=== PATIENT | male | born 1950 | race Caucasian/White ===

== ENCOUNTER → 2016-10-13 | Outpatient (CLI) | payer MEDICARE ==
[~2016-10-13] MED LIST: ALEVE220 MG PO; ATENOLOL25 MG; B12100 MCG PO; BUSPIRONE5 MG PO; BYETTA10 MCG/0.0 SC; CIALIS20 MG PO; CYCLOBENZAPRINE10 MG PO; DELTASONE5 MG PO; ENTERIC ASPIRI325 MG; FLEXERIL10 MG PO; FOLIC ACID1 MG PO; HYDROCODONE BIT1 T11 PO; IBU800 MG PO; LASIX20 MG PO; LEVEMIR100 U/ML SC; LOVAZA1 GM PO; MEDROL DOSEPAK4 MG PO; METFORMIN500 MG PO; MOTRIN800 MG PO; NAPROSYN500 MG PO; NIASPAN1000 MG PO; NORCO 5-325 TA1 EACH PO; PANTOPRAZOLE40 MG PO; POTASSIUM20 MEQ PO; PREDNICOT20 MG PO; PREDNISONE50 MG PO; PRILOSEC10 MG PO; RAMIPRIL5 MG PO; SIMVASTATIN20 MG PO; SYNTHROID0.1 MG PO; VITAMIN D5000 I2 PO
== END | disposition home or self-care (01) ==
LOC: RAD 13:16
DX: I70.0 Atherosclerosis of aorta (principal); M12.88 Other specific arthropathies, not elsewhere classified, other specified site; G89.29 Other chronic pain; M47.896 Other spondylosis, lumbar region

== ENCOUNTER → 2016-10-20 | Outpatient (CLI) | payer MEDICARE ==
[2016-10-21 07:08] LABS: RHEUMATOID ARTHRITIS FACTOR <10.0 IU/mL (0.0-13.9)
== END | disposition home or self-care (01) ==
LOC: LAB 13:08
PROVIDERS: Physician Assistant
DX: M54.5 Low back pain (principal); G89.29 Other chronic pain

== ENCOUNTER → 2017-04-27 | Outpatient (CLI) | payer MEDICARE | END | disposition home or self-care (01) | LOC: RAD 15:28 | DX: S70.01XA Contusion of right hip, initial encounter (principal); M16.11 Unilateral primary osteoarthritis, right hip; X58.XXXA Exposure to other specified factors, initial encounter; Y93.89 Activity, other specified; Y92.89 Other specified places as the place of occurrence of the external cause; Y99.8 Other external cause status ==

== ENCOUNTER 2018-01-03 14:08 | Inpatient (IN) | payer MEDICARE ==
[~2018-01-03] VITALS: Ht 172.7 cm; Wt 115.2 kg
--- NOTE | ~2018-01-03 | CON ---
[place], [place] REPORT OF CONSULTATION NAME: NAOMI CHERYFLORINDA Lawrence UNIT #: [id number] ROOM: [facility] DOCTOR: ANNIKA ABERNATHY MD BIRTHDATE: [birth year] DOS: 01/04/2018 NO DICTATION ANNIKA ABERNATHY MD CM:CONSTR:REPORT OF CONSULTATION 1134 01/04/18 1914 interface
--- NOTE | ~2018-01-03 | EKG ---
[place], [place] ELECTROCARDIOGRAM REPORT NAME: FLORINDA SALGADO SR UNIT #: [id number] ROOM: [facility] DOCTOR: TYLER DRAFT REPORT BIRTHDATE: [birth year] [facility] Test Date: 2018-01-04 Test Time: 00:58:23 Pat Name: FLORINDA SALGADO Department: Room: [facility] 1 Gender: M [employer] Worker: : 1950 Requested By: ESSENCE MORRIS Order Number: [id number] Reading MD: Jeffry Orozco MD Measurements Intervals [place] Rate: 105 P: 50 WV: 173 QRS: 68 QRSD: 96 T: 12 QT: 375 QTc: 496 Interpretive Statements Sinus tachycardia Borderline prolonged QT interval Electronically Signed On 01-05-2018 11:09:24 PDT by Jeffry Orozco MD CM:EKGRPT:ELECTROCARDIOGRAM REPORT [id number] ESSENCE HANNAH DRAFT REPORT ESSENCE MORRIS DO
--- NOTE | ~2018-01-03 | CON ---
[place], [place] REPORT OF CONSULTATION NAME: FLORINDA SALGADO SR [id number] UNIT #: [id number] ROOM: 501 DOCTOR: ANNIKA ABERNATHY MD BIRTHDATE: [birth year] DOS: 01/04/2018 HISTORY OF PRESENT ILLNESS: This is a 67-year-old -[place] man with a history of essential hypertension, diabetes mellitus type 2, morbid obesity, hypothyroidism, obstructive sleep apnea, DJD, chronic kidney disease, BPH and had atrial fibrillation in 2011, GERD and has had eye surgery, herniorrhaphy and right knee surgery. He was admitted to the hospital because of lower abdominal pain that was quite severe and felt like cramps. It would not let up, so he came to the Emergency Department and was admitted and I believe has been diagnosed with acute diverticulitis. Dr. Hearn was asked to see him because of slight increase in troponin I level, which was 0.142 on admission and dropped to 0.117. He has not had any exertional chest pain or heaviness or chest pain at rest. He is not a very active man and since he retired a couple of years ago. There has not been any PND, orthopnea, or swelling of the legs. No palpitations, no loss of consciousness. He does not smoke nor does he drink alcoholic beverages. He retired a couple of years ago. HOME MEDICATIONS: Include buspirone, Invokana, levothyroxine, furosemide 20 mg daily, cyclobenzaprine 10 mg b.i.d., Protonix 40 daily, niacin 1 gram ER daily, ramipril 5 mg daily, simvastatin 20 daily, Cialis 5 mg twice a week as needed, and Trulicity. PHYSICAL EXAMINATION: GENERAL: This is a patient who is moderately obese. He is alert. He is oriented. His complexion is fine. He is moderately obese. There is no thyromegaly or finger clubbing, no cyanosis, not jaundiced. VITAL SIGNS: Pulse is regular at 88 beats per minute, blood pressure 118/68, previous blood pressure was 160/92. NECK: JVP is normal, no bruit in the neck. HEART: There is no cardiomegaly, no murmurs are present. EXTREMITIES: He has 1+ pretibial edema. Pedal pulses are palpable. RESPIRATORY: Breath sounds are mildly diminished because of obesity, but no adventitious sounds are present. DIAGNOSTIC DATA: ECG showed normal sinus rhythm at 105 beats per minute and a normal pattern. No other ECG was done. LABORATORY DATA: BUN is 23, creatinine 1.63 and GFR is 42 mL per minute. IMPRESSION: This patient with multiple risk factors for coronary artery disease, has troponin I level that is just slightly above normal. This patient has acute abdominal infection, has chronic kidney disease, diabetes mellitus and was hypertensive. Combination of this practice can easily raise troponin I level without epicardial coronary artery occlusion. Since he does have many risk factors, underlying coronary disease should eventually be evaluated. [place], [place] REPORT OF CONSULTATION NAME: NAOMI CHERY,FLORINDA Bravo UNIT #: [id number] ROOM: [facility] DOCTOR: ANNIKA ABERNATHY MD BIRTHDATE: [birth year] In the meantime, it is an good idea to put him on beta therefore, carvedilol 6.25 mg b.i.d. will be started. I thank you on behalf of Dr. Hearn for this consult. ANNIKA ABERNATHY MD CM:CONSTR:REPORT OF CONSULTATION 1134 01/04/18 6126 interface
[2018-01-03 14:12] VITALS: BP 160/92
[2018-01-03 14:39] LABS: BASO # 0.1 10*3/uL (0.0-0.1); BASO % 0.4 % (0.0-1.0); EOS # 0.1 10*3/uL (0.0-0.4); HEMATOCRIT 56.9 % (42.0-52.0); HEMOGLOBIN 18.5 g/dl (14.0-18.0); LYMPH # 1.4 10*3/uL (1.3-4.4); LYMPH % 10.5 % (27.0-41.0); MEAN CELL VOLUME 94.5 fl (80.0-94.0); MEAN CORPUSCULAR HGB 30.7 pg (27.0-31.0); MEAN CORPUSCULAR HGB CONC 32.5 g/dl (33.0-37.0); MEAN PLATELET VOLUME 11.7 fl (9.6-12.3); MONO # 0.7 10*3/uL (0.1-1.0); MONO % 5.3 % (3.0-9.0); NEUT # 11.2 10*3/uL (2.3-7.9); NEUT % 82.6 % (47.0-73.0); PLATELET COUNT AUTOMATED 166 10*3/uL (130-400); RED BLOOD COUNT 6.02 10*6/uL (4.50-5.90); RED CELL DISTRI WIDTH 13.6 % (0-14.5); WHITE BLOOD COUNT 13.5 10*3/uL (4.8-10.8)
[2018-01-03 14:56] LABS: ALKALINE PHOSPHATASE 90 U/L (45-117); BUN 15 mg/dl (7-24); CHLORIDE 102 mmol/L (98-107); CREATININE 1.29 mg/dL (0.70-1.30); LIPASE 308 U/L (73-393); POTASSIUM 4.2 mmol/L (3.5-5.1); SGOT/AST 21 IU/L (3-35); SGPT/ALT 44 U/L (12-78); SODIUM 138 mmol/L (136-145); TOTAL PROTEIN 8.5 gm/dL (6.4-8.2)
[2018-01-03 16:30] VITALS: BP 144/80
[2018-01-03 18:17] VITALS: BP 147/79
[2018-01-03 20:13] VITALS: BP 137/87
[2018-01-03 22:13] VITALS: BP 110/63
[2018-01-03 23:20] VITALS: BP 156/82
[2018-01-03] MEDS ORDERED: TRULICITY0.75 MG/0. SC (23:54)
[2018-01-03] MEDS ORDERED: INVOKANA100 M1 PO (23:55)
[2018-01-04] VITALS (7 sets, daily range): BP systolic 112–156; BP diastolic 60–82
[2018-01-04 03:14] LABS: TROPONIN I 0.133 ng/ml (<0.045)
[2018-01-04 06:38] LABS: BASO % 0.3 % (0.0-1.0); EOS % 0.2 % (1.0-4.0); HEMATOCRIT 54.1 % (42.0-52.0); HEMOGLOBIN 17.2 g/dl (14.0-18.0); LYMPH # 0.6 10*3/uL (1.3-4.4); LYMPH % 4.5 % (27.0-41.0); MEAN CELL VOLUME 95.2 fl (80.0-94.0); MEAN CORPUSCULAR HGB 30.3 pg (27.0-31.0); MEAN CORPUSCULAR HGB CONC 31.8 g/dl (33.0-37.0); MEAN PLATELET VOLUME 11.9 fl (9.6-12.3); MONO # 0.8 10*3/uL (0.1-1.0); MONO % 6.3 % (3.0-9.0); NEUT # 11.9 10*3/uL (2.3-7.9); NEUT % 88.5 % (47.0-73.0); PLATELET COUNT AUTOMATED 157 10*3/uL (130-400); RED BLOOD COUNT 5.68 10*6/uL (4.50-5.90); RED CELL DISTRI WIDTH 14.1 % (0-14.5); WHITE BLOOD COUNT 13.4 10*3/uL (4.8-10.8)
[2018-01-04 07:06] LABS: ALBUMIN 3.9 gm/dl (3.1-4.5); CREATININE 1.63 mg/dL (0.70-1.30); FREE T4 1.01 ng/dl (0.76-1.46); PHOSPHOROUS 3.4 mg/dL (2.5-4.9); POTASSIUM 4.2 mmol/L (3.5-5.1); TOTAL PROTEIN 7.3 gm/dL (6.4-8.2)
[2018-01-04 07:10] LABS: THYROID STIM HORMONE (HS) 0.895 uIU/ml (0.358-4.75)
[2018-01-04 07:13] LABS: ACT PARTIAL THROMBO TIME 27.6 SECONDS (20.8-31.5)
[2018-01-04 07:52] LABS: VITAMIN D, 25-HYDROXY 35.5 ng/mL (30-100)
[2018-01-04] MEDS ORDERED: OMEPRAZOLE40 MG PO (15:27)
[2018-01-04] MEDS ORDERED: STRIANT30 MG T (15:30)
[2018-01-04] MEDS ORDERED: LIPITOR20 MG PO (15:31)
[2018-01-04] MEDS ORDERED: INVOKAMET 50-11 EACH PO (15:37)
[2018-01-05] VITALS: BP 122/78
[2018-01-05 08:00] VITALS: BP 109/70
[2018-01-05 08:32] LABS: BASO % 0.4 % (0.0-1.0); EOS # 0.2 10*3/uL (0.0-0.4); EOS % 3.2 % (1.0-4.0); HEMATOCRIT 50.2 % (42.0-52.0); HEMOGLOBIN 15.6 g/dl (14.0-18.0); LYMPH # 1.2 10*3/uL (1.3-4.4); LYMPH % 16.8 % (27.0-41.0); MEAN CELL VOLUME 97.9 fl (80.0-94.0); MEAN CORPUSCULAR HGB 30.4 pg (27.0-31.0); MEAN CORPUSCULAR HGB CONC 31.1 g/dl (33.0-37.0); MONO # 0.6 10*3/uL (0.1-1.0); MONO % 8.4 % (3.0-9.0); NEUT # 5.1 10*3/uL (2.3-7.9); NEUT % 70.9 % (47.0-73.0); PLATELET COUNT AUTOMATED 128 10*3/uL (130-400); RED BLOOD COUNT 5.13 10*6/uL (4.50-5.90); RED CELL DISTRI WIDTH 14.1 % (0-14.5); WHITE BLOOD COUNT 7.2 10*3/uL (4.8-10.8)
[2018-01-05 08:46] LABS: BUN 19 mg/dl (7-24); CHLORIDE 100 mmol/L (98-107); CREATININE 1.32 mg/dL (0.70-1.30); POTASSIUM 4.1 mmol/L (3.5-5.1); SODIUM 138 mmol/L (136-145)
[2018-01-05 12:00] VITALS: BP 103/63
[2018-01-05 16:00] VITALS: BP 115/59
[2018-01-05 20:00] VITALS: BP 120/70
[2018-01-06] VITALS: BP 135/79
[2018-01-06 06:30] LABS: BASO % 0.7 % (0.0-1.0); EOS # 0.2 10*3/uL (0.0-0.4); EOS % 4.1 % (1.0-4.0); HEMOGLOBIN 15.2 g/dl (14.0-18.0); LYMPH # 1.3 10*3/uL (1.3-4.4); LYMPH % 22.8 % (27.0-41.0); MEAN CELL VOLUME 98.6 fl (80.0-94.0); MEAN CORPUSCULAR HGB 30.6 pg (27.0-31.0); MEAN PLATELET VOLUME 12.1 fl (9.6-12.3); MONO # 0.6 10*3/uL (0.1-1.0); MONO % 10.7 % (3.0-9.0); NEUT # 3.6 10*3/uL (2.3-7.9); NEUT % 61.5 % (47.0-73.0); PLATELET COUNT AUTOMATED 131 10*3/uL (130-400); RED BLOOD COUNT 4.97 10*6/uL (4.50-5.90); WHITE BLOOD COUNT 5.8 10*3/uL (4.8-10.8)
[2018-01-06 06:55] LABS: BUN 17 mg/dl (7-24); CHLORIDE 103 mmol/L (98-107); SODIUM 141 mmol/L (136-145)
[2018-01-06 08:00] VITALS: BP 135/80
[2018-01-06] MEDS ORDERED: FLAGYL500 MG PO (11:15)
[2018-01-06] MEDS ORDERED: CIPRO500 MG PO (11:15)
== END 2018-01-06 13:20 | disposition home or self-care (01) | DRG 872 ==
LOC: ED 14:08 → EDHOLD 22:35 → 5E 22:35
PROVIDERS: Internal Medicine; Nurse Practitioner Family
PROC: 5A09357 Assistance with Respiratory Ventilation, Less than 24 Consecutive Hours, Continuous Positive Airway Pressure (ICD-10-PCS; principal; 2018-01-04)
PROC: 5A09357 Assistance with Respiratory Ventilation, Less than 24 Consecutive Hours, Continuous Positive Airway Pressure (ICD-10-PCS; 2018-01-06)
DX: A41.9 Sepsis, unspecified organism (principal); N17.9 Acute kidney failure, unspecified; E87.2 Acidosis; K56.609 Unspecified intestinal obstruction, unspecified as to partial versus complete obstruction; E11.22 Type 2 diabetes mellitus with diabetic chronic kidney disease; I48.0 Paroxysmal atrial fibrillation; D75.1 Secondary polycythemia; E11.65 Type 2 diabetes mellitus with hyperglycemia; N18.3 Chronic kidney disease, stage 3 (moderate); K56.7 Ileus, unspecified; Z68.42 Body mass index [BMI] 45.0-49.9, adult; K76.0 Fatty (change of) liver, not elsewhere classified; K52.9 Noninfective gastroenteritis and colitis, unspecified; K57.30 Diverticulosis of large intestine without perforation or abscess without bleeding; R65.20 Severe sepsis without septic shock; R74.8 Abnormal levels of other serum enzymes; K44.9 Diaphragmatic hernia without obstruction or gangrene; M54.16 Radiculopathy, lumbar region; M16.0 Bilateral primary osteoarthritis of hip; D75.89 Other specified diseases of blood and blood-forming organs; I12.9 Hypertensive chronic kidney disease with stage 1 through stage 4 chronic kidney disease, or unspecified chronic kidney disease; E78.5 Hyperlipidemia, unspecified; E03.9 Hypothyroidism, unspecified; K21.9 Gastro-esophageal reflux disease without esophagitis; G47.33 Obstructive sleep apnea (adult) (pediatric); N40.0 Benign prostatic hyperplasia without lower urinary tract symptoms; F41.1 Generalized anxiety disorder; E66.9 Obesity, unspecified; Z87.891 Personal history of nicotine dependence; Z82.49 Family history of ischemic heart disease and other diseases of the circulatory system; Z83.3 Family history of diabetes mellitus; Z79.899 Other long term (current) drug therapy

== ENCOUNTER → 2018-01-23 | Outpatient (CLI) | payer MEDICARE ==
[~2018-01-23] MED LIST changes: +CIPRO500 MG PO; +FLAGYL500 MG PO; +INVOKAMET 50-11 EACH PO; +INVOKANA100 M1 PO; +LIPITOR20 MG PO; +OMEPRAZOLE40 MG PO; +STRIANT30 MG T; +TRULICITY0.75 MG/0. SC
--- NOTE | ~2018-01-23 | ST ---
[place], [place] EXERCISE STRESS TEST REPORT [id number] UNIT #: [id number] ROOM: DOCTOR: TERELL PHILLIPS MD BIRTHDATE: [birth year] DOS: 01/23/2018 LEXISCAN PORTION OF THE LEXISCAN CARDIOLITE PROCEDURE AND FINDINGS: Baseline echocardiogram with sinus rhythm with poor R-wave progression. 0.4 mg Lexiscan, duration of 10 seconds. With Lexiscan, the patient had no chest discomfort, no dysrhythmia. Blood pressure and heart rate response are normal. Nuclear images will be reported separately. TERELL PHILLIPS MD CM:STRESS:EXERCISE STRESS TEST REPORT [id number] TERELL PHILLIPS MD
== END | disposition home or self-care (01) ==
LOC: CARD 03:29
DX: I21.9 Acute myocardial infarction, unspecified (principal); R53.81 Other malaise; R94.31 Abnormal electrocardiogram [ECG] [EKG]; R74.8 Abnormal levels of other serum enzymes; E03.9 Hypothyroidism, unspecified

== ENCOUNTER → 2018-08-24 | Outpatient (CLI) | payer MEDICARE ==
[2018-08-24 09:29] LABS: BASO % 0.3 % (0.0-1.0); EOS # 0.2 10*3/uL (0.0-0.4); HEMOGLOBIN 16.8 g/dl (14.0-18.0); LYMPH # 1.4 10*3/uL (1.3-4.4); LYMPH % 21.1 % (27.0-41.0); MEAN CELL VOLUME 97.6 fl (80.0-94.0); MEAN CORPUSCULAR HGB 31.5 pg (27.0-31.0); MEAN CORPUSCULAR HGB CONC 32.3 g/dl (33.0-37.0); MONO # 0.7 10*3/uL (0.1-1.0); MONO % 10.2 % (3.0-9.0); NEUT # 4.2 10*3/uL (2.3-7.9); NEUT % 65.2 % (47.0-73.0); PLATELET COUNT AUTOMATED 128 10*3/uL (130-400); RED BLOOD COUNT 5.33 10*6/uL (4.50-5.90); RED CELL DISTRI WIDTH 14.3 % (0-14.5); WHITE BLOOD COUNT 6.4 10*3/uL (4.8-10.8)
[2018-08-24 09:38] LABS: ALBUMIN 3.8 gm/dl (3.1-4.5); ALKALINE PHOSPHATASE 89 U/L (45-117); BUN 13 mg/dl (7-24); CHLORIDE 101 mmol/L (98-107); CHOLESTEROL 128 mg/dL (<200); CREATININE 1.15 mg/dL (0.70-1.30); HDL CHOLESTEROL 35 mg/dl (40-60); LDL CHOLESTEROL 55 mg/dL (9-159); POTASSIUM 4.2 mmol/L (3.5-5.1); SGOT/AST 22 IU/L (3-35); SODIUM 136 mmol/L (136-145); TOTAL PROTEIN 7.5 gm/dL (6.4-8.2); TRIGLYCERIDES 190 mg/dl (<150); VLDL CHOLESTEROL 38 mg/dL (6-40)
[2018-08-24 09:45] LABS: SGPT/ALT 38 U/L (12-78)
[2018-08-25 10:05] LABS: CREATININE,URINE 68.5 mg/dL (Not Estab.); MICRO ALBUMIN/CRE RATIO 6.1 (0.0-30.0)
== END | disposition home or self-care (01) ==
LOC: LAB 08:43
PROVIDERS: Registered Nurse Flight
DX: E11.65 Type 2 diabetes mellitus with hyperglycemia (principal); I10 Essential (primary) hypertension; E78.5 Hyperlipidemia, unspecified; E55.9 Vitamin D deficiency, unspecified; D69.3 Immune thrombocytopenic purpura

== ENCOUNTER → 2019-02-25 | Outpatient (CLI) | payer MEDICARE ==
[2019-02-25 10:30] LABS: BILIRUBIN NEGATIVE (NEGATIVE); BLOOD TRACE-INTACT (NEGATIVE); CLARITY CLEAR (CLEAR); COLOR YELLOW (YELLOW); GLUCOSE NEGATIVE (NEGATIVE); KETONE NEGATIVE (NEGATIVE); LEUKO ESTERASE NEGATIVE (NEGATIVE); NITRITE NEGATIVE (NEGATIVE); UROBILINOGEN 0.2 E.U./dl (0.2-1.0)
[2019-02-25 10:37] LABS: HEMOGLOBIN 17.4 g/dl (14.0-18.0); MEAN CELL VOLUME 98.7 fl (80.0-94.0); MEAN CORPUSCULAR HGB CONC 33.5 g/dl (33.0-37.0); MEAN PLATELET VOLUME 11.4 fl (9.6-12.3); PLATELET COUNT AUTOMATED 128 10*3/uL (130-400); RED BLOOD COUNT 5.27 10*6/uL (4.50-5.90); RED CELL DISTRI WIDTH 13.5 % (0-14.5); WHITE BLOOD COUNT 2.4 10*3/uL (4.8-10.8)
[2019-02-25 10:45] LABS: BACTERIA TRACE; RBC 16-20 rbc/hpf (0-2)
[2019-02-25 10:58] LABS: BUN 16 mg/dl (7-24); CHLORIDE 105 mmol/L (98-107); CREATININE 1.25 mg/dL (0.70-1.30); POTASSIUM 4.4 mmol/L (3.5-5.1); SODIUM 141 mmol/L (136-145)
[2019-02-25 11:28] LABS: ATYPICAL LYMPHS 3 % (0-0); BASOPHILS 2 % (0-1); PLATELET SUFFICIENCY LOW (NORMAL); TOTAL CELLS COUNTED 100 #CELLS
[2019-02-25 11:48] LABS: VITAMIN D, 25-HYDROXY 45.2 ng/mL (30-100)
== END | disposition home or self-care (01) ==
LOC: LAB 10:04
PROVIDERS: Internal Medicine; Registered Nurse Flight
DX: E11.65 Type 2 diabetes mellitus with hyperglycemia (principal); D69.3 Immune thrombocytopenic purpura; E55.9 Vitamin D deficiency, unspecified; E34.9 Endocrine disorder, unspecified; N40.0 Benign prostatic hyperplasia without lower urinary tract symptoms

== ENCOUNTER → 2019-03-15 | Outpatient (CLI) | payer MEDICARE | END | disposition home or self-care (01) | LOC: US 13:22 | DX: I65.23 Occlusion and stenosis of bilateral carotid arteries (principal) ==

== ENCOUNTER 2019-06-11 21:47 | Emergency (ER) | payer MEDICARE ==
[~2019-06-11] VITALS: Ht 172.7 cm; Wt 122.5 kg
== END 2019-06-12 00:59 | disposition home or self-care (01) ==
LOC: ED 21:47
DX: S62.102A Fracture of unspecified carpal bone, left wrist, initial encounter for closed fracture (principal); S00.81XA Abrasion of other part of head, initial encounter; M25.561 Pain in right knee; M25.562 Pain in left knee; M79.641 Pain in right hand; M79.642 Pain in left hand; M25.531 Pain in right wrist; M25.532 Pain in left wrist; E11.22 Type 2 diabetes mellitus with diabetic chronic kidney disease; I12.9 Hypertensive chronic kidney disease with stage 1 through stage 4 chronic kidney disease, or unspecified chronic kidney disease; N18.3 Chronic kidney disease, stage 3 (moderate); I48.91 Unspecified atrial fibrillation; K21.9 Gastro-esophageal reflux disease without esophagitis; E78.5 Hyperlipidemia, unspecified; E03.9 Hypothyroidism, unspecified; E66.9 Obesity, unspecified; Z68.30 Body mass index [BMI] 30.0-30.9, adult; Z87.891 Personal history of nicotine dependence; Z79.899 Other long term (current) drug therapy; Z79.2 Long term (current) use of antibiotics; W10.1XXA Fall (on)(from) sidewalk curb, initial encounter; Y93.89 Activity, other specified; Y92.89 Other specified places as the place of occurrence of the external cause; Y99.8 Other external cause status

== ENCOUNTER → 2019-07-29 | Outpatient (CLI) | payer MEDICARE ==
[2019-07-29 12:47] LABS: ALBUMIN 4.1 gm/dl (3.1-4.5); BUN 17 mg/dl (7-24); CHLORIDE 107 mmol/L (98-107); CREATININE 1.29 mg/dL (0.70-1.30); POTASSIUM 4.5 mmol/L (3.5-5.1); SODIUM 141 mmol/L (136-145)
[2019-07-29 14:03] LABS: COLOR YELLOW (YELLOW)
[2019-07-29 14:06] LABS: BILIRUBIN NEGATIVE (NEGATIVE); BLOOD 2+ (NEGATIVE); CLARITY CLEAR (CLEAR); GLUCOSE NEGATIVE (NEGATIVE); KETONE NEGATIVE (NEGATIVE); LEUKO ESTERASE TRACE (NEGATIVE); NITRITE NEGATIVE (NEGATIVE); UROBILINOGEN 0.2 E.U./dl (0.2-1.0)
[2019-07-29 14:07] LABS: BACTERIA TRACE; EPITHELIAL CELLS 0-2
[2019-07-29 15:10] LABS: VITAMIN D, 25-HYDROXY 57.7 ng/mL (30-100)
== END | disposition home or self-care (01) ==
LOC: LAB 12:09
PROVIDERS: Internal Medicine
DX: E11.65 Type 2 diabetes mellitus with hyperglycemia (principal); E55.9 Vitamin D deficiency, unspecified; E34.9 Endocrine disorder, unspecified; N40.0 Benign prostatic hyperplasia without lower urinary tract symptoms

== ENCOUNTER → 2019-11-12 | Outpatient (CLI) | payer MEDICARE ==
[2019-11-12 14:45] LABS: BILIRUBIN NEGATIVE (NEGATIVE); BLOOD 1+ (NEGATIVE); CLARITY SL CLOUDY (CLEAR); COLOR YELLOW (YELLOW); GLUCOSE NEGATIVE (NEGATIVE); KETONE NEGATIVE (NEGATIVE); LEUKO ESTERASE NEGATIVE (NEGATIVE); NITRITE NEGATIVE (NEGATIVE); SPECIFIC GRAVITY 1.005 (1.005-1.030); UROBILINOGEN 0.2 E.U./dl (0.2-1.0)
[2019-11-12 14:58] LABS: ALBUMIN 4.3 gm/dl (3.1-4.5); ALKALINE PHOSPHATASE 47 U/L (45-117); BILIRUBIN, DIRECT 0.2 mg/dL (0.0-0.2); BUN 18 mg/dl (7-24); CHLORIDE 107 mmol/L (98-107); CHOLESTEROL 133 mg/dL (<200); CREATININE 1.36 mg/dL (0.70-1.30); FREE T4 1.14 ng/dl (0.76-1.46); HDL CHOLESTEROL 38 mg/dl (40-60); LDL CHOLESTEROL 58 mg/dL (9-159); POTASSIUM 4.2 mmol/L (3.5-5.1); SGOT/AST 24 IU/L (3-35); SGPT/ALT 47 U/L (12-78); SODIUM 141 mmol/L (136-145); TOTAL PROTEIN 7.3 gm/dL (6.4-8.2); TRIGLYCERIDES 186 mg/dl (<150); VLDL CHOLESTEROL 37 mg/dL (6-40)
[2019-11-12 15:03] LABS: THYROID STIM HORMONE (HS) 0.721 uIU/ml (0.358-4.75)
[2019-11-12 15:11] LABS: BACTERIA TRACE; RBC 41-50 rbc/hpf (0-2)
[2019-11-12 15:35] LABS: VITAMIN D, 25-HYDROXY 45.3 ng/mL (30-100)
== END | disposition home or self-care (01) ==
LOC: LAB 14:13
PROVIDERS: Internal Medicine
DX: E11.65 Type 2 diabetes mellitus with hyperglycemia (principal); E78.5 Hyperlipidemia, unspecified; E03.9 Hypothyroidism, unspecified; E55.9 Vitamin D deficiency, unspecified; E34.9 Endocrine disorder, unspecified

== ENCOUNTER → 2020-03-23 | Outpatient (CLI) | payer MEDICARE ==
[2020-03-23 12:14] LABS: BASO % 0.6 % (0.0-1.0); EOS # 0.2 10*3/uL (0.0-0.4); HEMATOCRIT 49.4 % (42.0-52.0); LYMPH # 1.2 10*3/uL (1.3-4.4); LYMPH % 23.1 % (27.0-41.0); MEAN CELL VOLUME 101.4 fl (80.0-94.0); MEAN CORPUSCULAR HGB 32.6 pg (27.0-31.0); MEAN CORPUSCULAR HGB CONC 32.2 g/dl (33.0-37.0); MEAN PLATELET VOLUME 11.9 fl (9.6-12.3); MONO # 0.4 10*3/uL (0.1-1.0); MONO % 7.8 % (3.0-9.0); NEUT # 3.2 10*3/uL (2.3-7.9); NEUT % 64.3 % (47.0-73.0); PLATELET COUNT AUTOMATED 145 10*3/uL (130-400); RED BLOOD COUNT 4.87 10*6/uL (4.50-5.90); RED CELL DISTRI WIDTH 13.2 % (0-14.5)
[2020-03-23 12:42] LABS: BILIRUBIN Negative (Negative); BLOOD Negative (Negative); CLARITY Clear (Clear); COLOR Yellow (Yellow); GLUCOSE Negative (Negative); KETONE Negative (Negative); LEUKO ESTERASE Negative (Negative); NITRITE Negative (Negative); PH 7.5 (4.5-8.0); SPECIFIC GRAVITY 1.015 (1.001-1.030); UROBILINOGEN 0.2 E.U./dl (0.0-1.0)
[2020-03-23 12:52] LABS: ALKALINE PHOSPHATASE 48 U/L (45-117); BILIRUBIN, DIRECT 0.1 mg/dL (0.0-0.2); BUN 16 mg/dl (7-24); CHLORIDE 110 mmol/L (98-107); CHOLESTEROL 128 mg/dL (<200); CREATININE 1.32 mg/dL (0.70-1.30); POTASSIUM 4.9 mmol/L (3.5-5.1); SGOT/AST 21 IU/L (3-35); SGPT/ALT 39 U/L (12-78); SODIUM 136 mmol/L (136-145); TOTAL PROTEIN 7.3 gm/dL (6.4-8.2); TRIGLYCERIDES 178 mg/dl (<150); VLDL CHOLESTEROL 36 mg/dL (6-40)
[2020-03-23 12:58] LABS: FREE T4 1.01 ng/dl (0.76-1.46); HDL CHOLESTEROL 42 mg/dl (40-60); LDL CHOLESTEROL 50 mg/dL (9-159)
[2020-03-23 12:59] LABS: VITAMIN D, 25-HYDROXY 53.8 ng/mL (30-100)
[2020-03-23 13:35] LABS: EPITHELIAL CELLS 0-2; RBC 0-2 rbc/hpf (0-2)
== END | disposition home or self-care (01) ==
LOC: LAB 11:35
PROVIDERS: ATTEND Internal Medicine
DX: E34.9 Endocrine disorder, unspecified (principal); E78.5 Hyperlipidemia, unspecified; E11.65 Type 2 diabetes mellitus with hyperglycemia; E55.9 Vitamin D deficiency, unspecified; E03.9 Hypothyroidism, unspecified; D69.3 Immune thrombocytopenic purpura

== ENCOUNTER 2020-06-13 14:58 | Emergency (ER) | payer MEDICARE ==
[~2020-06-13] VITALS: Wt 113.4 kg
== END 2020-06-13 16:57 | disposition home or self-care (01) ==
LOC: ED 14:58
DX: J06.9 Acute upper respiratory infection, unspecified (principal); Z20.828 Contact with and (suspected) exposure to other viral communicable diseases; I10 Essential (primary) hypertension; E78.00 Pure hypercholesterolemia, unspecified; E11.9 Type 2 diabetes mellitus without complications

== ENCOUNTER → 2020-07-07 | Outpatient (CLI) | payer MEDICARE ==
[2020-07-07 12:42] LABS: BILIRUBIN Negative (Negative); BLOOD Negative (Negative); CLARITY Clear (Clear); COLOR Yellow (Yellow); GLUCOSE Negative (Negative); KETONE Negative (Negative); LEUKO ESTERASE Negative (Negative); NITRITE Negative (Negative); PH 7.5 (4.5-8.0); UROBILINOGEN 0.2 E.U./dl (0.0-1.0)
[2020-07-07 13:06] LABS: ALBUMIN 3.6 gm/dl (3.1-4.5); ALKALINE PHOSPHATASE 58 U/L (45-117); BILIRUBIN, DIRECT 0.2 mg/dL (0.0-0.2); BUN 21 mg/dl (7-24); CHLORIDE 107 mmol/L (98-107); CHOLESTEROL 145 mg/dL (<200); CREATININE 1.24 mg/dL (0.70-1.30); FREE T4 0.95 ng/dl (0.76-1.46); HDL CHOLESTEROL 44 mg/dl (40-60); LDL CHOLESTEROL 69 mg/dL (9-159); POTASSIUM 4.7 mmol/L (3.5-5.1); SGOT/AST 23 IU/L (3-35); SGPT/ALT 43 U/L (12-78); SODIUM 141 mmol/L (136-145); TOTAL PROTEIN 7.1 gm/dL (6.4-8.2); TRIGLYCERIDES 158 mg/dl (<150); VLDL CHOLESTEROL 32 mg/dL (6-40)
[2020-07-07 13:09] LABS: EPITHELIAL CELLS 0-2; WBC 0-2 wbc/hpf (0-5)
[2020-07-07 13:51] LABS: VITAMIN D, 25-HYDROXY 64.1 ng/mL (30-100)
== END | disposition home or self-care (01) ==
LOC: LAB 11:43
PROVIDERS: ATTEND Internal Medicine
DX: E11.65 Type 2 diabetes mellitus with hyperglycemia (principal); E78.5 Hyperlipidemia, unspecified; E34.9 Endocrine disorder, unspecified; E03.9 Hypothyroidism, unspecified; E55.9 Vitamin D deficiency, unspecified; N40.0 Benign prostatic hyperplasia without lower urinary tract symptoms

== ENCOUNTER → 2020-12-10 | Outpatient (CLI) | payer MEDICARE ==
[2020-12-10 10:52] LABS: ALBUMIN 3.5 gm/dl (3.1-4.5); BILIRUBIN, DIRECT 0.2 mg/dL (0.0-0.2); CREATININE 1.94 mg/dL (0.70-1.30); FREE T4 0.95 ng/dl (0.76-1.46); TOTAL PROTEIN 6.9 gm/dL (6.4-8.2)
[2020-12-10 10:56] LABS: THYROID STIM HORMONE (HS) 1.04 uIU/ml (0.358-4.75)
== END | disposition home or self-care (01) ==
LOC: LAB 10:03
PROVIDERS: ATTEND Internal Medicine
DX: E11.65 Type 2 diabetes mellitus with hyperglycemia (principal); E03.9 Hypothyroidism, unspecified; E78.5 Hyperlipidemia, unspecified; E34.9 Endocrine disorder, unspecified; E55.9 Vitamin D deficiency, unspecified

== ENCOUNTER → 2021-05-14 | Outpatient (CLI) | payer MEDICARE ==
[2021-05-14 12:53] LABS: BILIRUBIN Negative (Negative); BLOOD Negative (Negative); CLARITY Clear (Clear); COLOR Yellow (Yellow); GLUCOSE Negative (Negative); KETONE Negative (Negative); LEUKO ESTERASE Negative (Negative); NITRITE Negative (Negative); SPECIFIC GRAVITY 1.025 (1.001-1.030)
[2021-05-14 13:01] LABS: EPITHELIAL CELLS 0-2; RBC 0-2 rbc/hpf (0-2); WBC 0-2 wbc/hpf (0-5)
[2021-05-14 13:07] LABS: ALBUMIN 3.7 gm/dl (3.1-4.5); BUN 21 mg/dl (7-24); CHLORIDE 109 mmol/L (98-107); CREATININE 1.29 mg/dL (0.70-1.30); SGOT/AST 17 IU/L (3-35); SGPT/ALT 39 U/L (12-78); SODIUM 141 mmol/L (136-145); TRIGLYCERIDES 235 mg/dl (<150)
[2021-05-14 13:15] LABS: ALKALINE PHOSPHATASE 47 U/L (45-117); CHOLESTEROL 142 mg/dL (<200); FREE T4 0.95 ng/dl (0.76-1.46); LDL CHOLESTEROL 56 mg/dL (9-159); TOTAL PROTEIN 7.2 gm/dL (6.4-8.2)
== END | disposition home or self-care (01) ==
LOC: LAB 12:23
PROVIDERS: ATTEND Internal Medicine
DX: E11.65 Type 2 diabetes mellitus with hyperglycemia (principal); E78.5 Hyperlipidemia, unspecified; E34.9 Endocrine disorder, unspecified; E03.9 Hypothyroidism, unspecified; E55.9 Vitamin D deficiency, unspecified; N40.0 Benign prostatic hyperplasia without lower urinary tract symptoms

== ENCOUNTER → 2021-11-22 | Outpatient (CLI) | payer MEDICARE | END | disposition home or self-care (01) | LOC: CARD 10:34 | PROVIDERS: ATTEND Internal Medicine Cardiovascular Disease | DX: I08.2 Rheumatic disorders of both aortic and tricuspid valves (principal) ==

== ENCOUNTER → 2021-12-15 | Outpatient (CLI) | payer MEDICARE ==
[2021-12-15 10:49] LABS: BILIRUBIN Negative (Negative); BLOOD Trace-Lysed (Negative); CLARITY Clear (Clear); COLOR Yellow (Yellow); GLUCOSE Negative (Negative); KETONE Negative (Negative); LEUKO ESTERASE Negative (Negative); NITRITE Negative (Negative); PH 5.5 (4.5-8.0); SPECIFIC GRAVITY 1.015 (1.001-1.030); UROBILINOGEN 0.2 E.U./dl (0.0-1.0)
[2021-12-15 10:50] LABS: ALKALINE PHOSPHATASE 43 U/L (45-117); BUN 19 mg/dl (7-24); CHLORIDE 109 mmol/L (98-107); CHOLESTEROL 124 mg/dL (<200); CREATININE 1.35 mg/dL (0.70-1.30); LDL CHOLESTEROL 50 mg/dL (9-159); POTASSIUM 4.6 mmol/L (3.5-5.1); SGOT/AST 24 IU/L (3-35); SGPT/ALT 44 U/L (12-78); SODIUM 142 mmol/L (136-145); TOTAL PROTEIN 6.9 gm/dL (6.4-8.2); TRIGLYCERIDES 194 mg/dl (<150)
[2021-12-15 10:51] LABS: FREE T4 0.94 ng/dl (0.76-1.46)
[2021-12-15 11:19] LABS: VITAMIN D, 25-HYDROXY 40.3 ng/mL (30-100)
[2021-12-15 11:29] LABS: EPITHELIAL CELLS 0-2
[2021-12-15 11:30] LABS: BACTERIA 1+; RBC 0-2 rbc/hpf (0-2)
== END | disposition home or self-care (01) ==
LOC: LAB 10:03
PROVIDERS: ATTEND Internal Medicine
DX: E11.65 Type 2 diabetes mellitus with hyperglycemia (principal); E03.9 Hypothyroidism, unspecified; E78.5 Hyperlipidemia, unspecified; E55.9 Vitamin D deficiency, unspecified; E34.9 Endocrine disorder, unspecified

== ENCOUNTER → 2022-09-28 | Outpatient (CLI) | payer OTHER ==
[2022-09-28 12:31] LABS: BILIRUBIN Negative (Negative); BLOOD 3+ (Negative); CLARITY Clear (Clear); COLOR Yellow (Yellow); GLUCOSE Negative (Negative); KETONE Negative (Negative); LEUKO ESTERASE Negative (Negative); NITRITE Negative (Negative)
[2022-09-28 12:57] LABS: RBC 21-30 rbc/hpf (0-2)
[2022-09-28 13:55] LABS: ALKALINE PHOSPHATASE 47 U/L (46-116); BUN 17 mg/dl (9-23); CHLORIDE 106 mmol/L (98-107); CHOLESTEROL 106 mg/dL (<200); FREE T4 1.13 ng/dl (0.89-1.76); LDL CHOLESTEROL 41 mg/dL (9-159); POTASSIUM 4.6 mmol/L (3.4-5.1); SGPT/ALT 29 U/L (10-49); THYROID STIM HORMONE (HS) 2.129 uIU/ml (0.550-4.780); TOTAL PROTEIN 6.8 gm/dL (6.0-8.0); TRIGLYCERIDES 181 mg/dl (<150)
== END | disposition home or self-care (01) ==
LOC: LAB 12:01
PROVIDERS: ATTEND Internal Medicine
DX: E11.9 Type 2 diabetes mellitus without complications (principal); E34.9 Endocrine disorder, unspecified; E55.9 Vitamin D deficiency, unspecified; E03.9 Hypothyroidism, unspecified; E78.5 Hyperlipidemia, unspecified; N40.0 Benign prostatic hyperplasia without lower urinary tract symptoms

== ENCOUNTER → 2023-04-22 | Outpatient (CLI) | payer OTHER ==
[2023-04-22 10:51] LABS: BILIRUBIN Negative (Negative); BLOOD 1+ (Negative); CLARITY Clear (Clear); COLOR Yellow (Yellow); GLUCOSE Negative (Negative); KETONE Negative (Negative); LEUKO ESTERASE Negative (Negative); NITRITE Negative (Negative); PH 5.5 (4.5-8.0)
[2023-04-22 11:17] LABS: FREE T4 1.18 ng/dl (0.89-1.76); POTASSIUM 4.5 mmol/L (3.4-5.1); TOTAL PROTEIN 7.9 gm/dL (6.0-8.0)
[2023-04-22 12:59] LABS: RBC 16-20 rbc/hpf (0-2); WBC 0-2 wbc/hpf (0-5)
== END | disposition home or self-care (01) ==
LOC: LAB 10:09
PROVIDERS: ATTEND Internal Medicine
DX: E11.9 Type 2 diabetes mellitus without complications (principal); E34.9 Endocrine disorder, unspecified; E55.9 Vitamin D deficiency, unspecified; E03.9 Hypothyroidism, unspecified; E78.5 Hyperlipidemia, unspecified

== ENCOUNTER → 2023-08-14 | Outpatient (CLI) | payer OTHER ==
[2023-08-14 08:51] LABS: BILIRUBIN Negative (Negative); BLOOD Negative (Negative); CLARITY Clear (Clear); COLOR Yellow (Yellow); GLUCOSE Negative (Negative); KETONE Negative (Negative); LEUKO ESTERASE Negative (Negative); NITRITE Negative (Negative); UROBILINOGEN 0.2 E.U./dl (0.0-1.0)
[2023-08-14 09:12] LABS: BACTERIA 1+; HYALINE CAST 0-2; MUCOUS TRACE; WBC 0-2 wbc/hpf (0-5)
[2023-08-14 09:31] LABS: FREE T4 1.17 ng/dl (0.89-1.76); POTASSIUM 4.5 mmol/L (3.4-5.1); TOTAL PROTEIN 7.3 gm/dL (6.0-8.0)
[2023-08-14 09:50] LABS: VITAMIN D, 25-HYDROXY 43.4 ng/mL (30-100)
[2023-08-14 09:51] LABS: TESTOSTERONE, TOTAL < 7 ng/dL (113-882)
== END | disposition home or self-care (01) ==
LOC: LAB 08:06
PROVIDERS: ATTEND Internal Medicine
DX: E11.9 Type 2 diabetes mellitus without complications (principal); E55.9 Vitamin D deficiency, unspecified; E34.8 Other specified endocrine disorders; E78.5 Hyperlipidemia, unspecified

== ENCOUNTER → 2024-03-05 | Outpatient (CLI) | payer OTHER ==
[~2024-03-05] MED LIST changes: +ALTACE10 MG PO; +ATORVASTATIN CA20 M1 PO; +BREO ELLIPTA 11 EACH INH; +BUSPAR5 MG PO; -BUSPIRONE5 MG PO; +FENOFIBRATE54 MG PO; +IMODIUM A-D2 M2 PO; +IRON325 M3 PO; +LOPRESSOR25 MG PO; +Lopressor25 MG PO; +MEN'S DAILY FO1 EAC1 PO; +METFORMIN HYD1000 MG PO; +MUCUS RELIEF600 MG PO; +OMNICEF300 MG PO; +POTASSIUM CHLO20 ME3 PO; -POTASSIUM20 MEQ PO; +PROBIOTIC1 EACH PO; +PROVENTIL HFA6.7 GM INH; -RAMIPRIL5 MG PO; +SPIRIVA RESPIMAT4 GM INH; -SYNTHROID0.1 MG PO; +Synthroid,Levo88 MCG PO; +TYLENOL325 M1 PO; +VITAMIN B121000 MC3 PO; +VITAMIN D3125 MCG PO; +ZITHROMAX500 MG PO
[2024-03-05 11:15] LABS: BILIRUBIN Negative (Negative); BLOOD Negative (Negative); CLARITY Clear (Clear); COLOR Yellow (Yellow); GLUCOSE Negative (Negative); KETONE Negative (Negative); LEUKO ESTERASE Negative (Negative); NITRITE Negative (Negative); UROBILINOGEN 0.2 E.U./dl (0.0-1.0)
[2024-03-05 11:30] LABS: POTASSIUM 4.1 mmol/L (3.4-5.1); TOTAL PROTEIN 7.8 gm/dL (6.0-8.0)
[2024-03-05 11:41] LABS: VITAMIN D, 25-HYDROXY 46.7 ng/mL (30-100)
[2024-03-05 13:25] LABS: BACTERIA 1+
[2024-03-06 08:12] LABS: IMMUNOGLOBULIN G, QNT 1580 mg/dL (603-1613)
[2024-03-06 14:09] LABS: ANGIOTENSIN-CONVERTING ENZYME 20 U/L (14-82)
[2024-03-06 16:09] LABS: ATYPICAL pANCA <1:20 titer (Neg:<1:20); CYTOPLASMIC (C-ANCA) <1:20 titer (Neg:<1:20); PERINUCLEAR (P-ANCA) <1:20 titer (Neg:<1:20)
[2024-03-07 19:07] LABS: ANTI MPO ANTIBODIES <0.2 units (0.0-0.9); ANTI PR3 ANTIBODIES 0.4 units (0.0-0.9)
[2024-03-08 15:08] LABS: CRYPTOCOCCUS ANTIGEN Negative (Negative)
== END | disposition home or self-care (01) ==
LOC: LAB 09:27
PROVIDERS: Internal Medicine; ATTEND Internal Medicine Critical Care Medicine
DX: E11.9 Type 2 diabetes mellitus without complications (principal); E34.9 Endocrine disorder, unspecified; E55.9 Vitamin D deficiency, unspecified; E03.9 Hypothyroidism, unspecified; E78.5 Hyperlipidemia, unspecified; N40.0 Benign prostatic hyperplasia without lower urinary tract symptoms

== ENCOUNTER → 2024-04-15 | Outpatient (CLI) | payer OTHER ==
[~2024-04-15] MED LIST changes: +ACARBOSE25 MG PO; +IOHEXOL 300 MG/ML 100 ML VIAL IV ONE; +IOHEXOL 300 MG/ML 100 ML VIAL ONE; +LEVOTHYROXINE112 MC1 PO; -Synthroid,Levo88 MCG PO; -VITAMIN B121000 MC3 PO; +VITAMIN B125000 MCG PO
== END | disposition home or self-care (01) ==
LOC: CT 09:17
PROVIDERS: ATTEND Specialist
DX: R91.8 Other nonspecific abnormal finding of lung field (principal); J90 Pleural effusion, not elsewhere classified

== ENCOUNTER → 2024-04-17 | Outpatient (CLI) | payer OTHER ==
[~2024-04-17] MED LIST changes: -IOHEXOL 300 MG/ML 100 ML VIAL IV ONE; -IOHEXOL 300 MG/ML 100 ML VIAL ONE; +Regadenoson 0.4 MG/5 ML SYR IV ONE; +Technetium Tc 99M Tetrofosmi 0.23 MG KIT IJ SCH
== END | disposition home or self-care (01) ==
LOC: CARD 02:52
PROVIDERS: ATTEND Internal Medicine Cardiovascular Disease
DX: Z01.810 Encounter for preprocedural cardiovascular examination (principal); R91.8 Other nonspecific abnormal finding of lung field; R06.02 Shortness of breath